=== PATIENT | male | born 1975 | race Caucasian/White ===

== ENCOUNTER 2023-02-27 23:03 | Emergency (ER) | payer SELFPAY ==
[2023-02-27 23:10] VITALS: BP 122/80; PULSE 72; RESP 18; TEMP 97.6; BMI 23.0
[2023-02-28 01:23] LABS: POTASSIUM 3.9 mmol/L (3.5-5.1)
[2023-02-28 01:24] LABS: CALCIUM 8.6 mg/dL (8.5-10.1)
[2023-02-28 01:25] LABS: BLOOD UREA NITROGEN 15.4 mg/dL (7-18)
[2023-02-28 01:28] LABS: CREATININE 0.8 mg/dL (0.55-1.3)
[2023-02-28] MEDS ORDERED: DEXAMETHASONE SOD PHOSPHATE 10 MG/1 ML VIAL IM ONE (01:40)
[2023-02-28] MEDS ORDERED: DEXAMETHASONE SOD PHOSPHATE 10 MG/1 ML VIAL ONE (01:54)
== END 2023-02-28 02:26 | disposition home or self-care (01) ==
LOC: JER 23:03
PROC: 3E0233Z Introduction of Anti-inflammatory into Muscle, Percutaneous Approach (ICD-10-PCS; principal; 2023-02-28)
DX: R25.2 Cramp and spasm (principal); R20.2 Paresthesia of skin
CPT/HCPCS: 36415; 72131-TC; 80048; 99284-25; J1100

== ENCOUNTER 2024-06-18 02:55 | Emergency (ER) | payer SELFPAY ==
[2024-06-18 03:05] VITALS: BP 121/90; PULSE 65; RESP 18; TEMP 98.4; BMI 21.5
[2024-06-18] MEDS ORDERED: ACETAMINOPHEN 325 MG TABLET (FP) ONE (03:24)
[2024-06-18] MEDS ORDERED: METOCLOPRAMIDE HCL 10 MG TABLET (FP) PO ONE (03:24)
[2024-06-18] MEDS ORDERED: MECLIZINE HCL 25 MG TABLET (FP) ONE (03:26)
[2024-06-18] MEDS: ACETAMINOPHEN 500 MG TABLET (FP) PO ONE (03:32)
[2024-06-18] MEDS: METOCLOPRAMIDE HCL 10 MG TABLET (FP) PO ONE (03:32)
[2024-06-18] MEDS: MECLIZINE HCL 25 MG TABLET (FP) PO ONE (03:33)
[2024-06-18] MEDS ORDERED: KETOROLAC TROMETHAMINE 30 MG/1 ML VIAL ONE (04:11)
[2024-06-18] MEDS: KETOROLAC TROMETHAMINE 30 MG/1 ML VIAL IM ONE (04:31)
== END 2024-06-18 05:23 | disposition home or self-care (01) ==
LOC: JER 02:55
PROC: 3E0133Z Introduction of Anti-inflammatory into Subcutaneous Tissue, Percutaneous Approach (ICD-10-PCS; principal; 2024-06-18)
DX: R51.9 Headache, unspecified (principal); R42 Dizziness and giddiness; R20.2 Paresthesia of skin
CPT/HCPCS: 99284-25